=== PATIENT | female | born 1955 | race Caucasian/White ===

== ENCOUNTER 2016-12-21 16:28 | Emergency (ER) | payer BC, MEDICARE ==
[~2016-12-21] VITALS: Ht 177.8 cm; Wt 133.8 kg
[~2016-12-21 16:28] MED LIST: AZTH250C PO; FLT05NA16 NSEACH; MTH10T PO; PRD20T PO; SULF1TAB38 PO; THYR120T2 PO
[2016-12-21] MEDS ORDERED: THYR130T5 PO (16:41)
[2016-12-21 16:55] LABS: BASOPHILS % (AUTO) 0 % (0-10); EOSINOPHILS # (AUTO) 0.1 10^3/uL (0.0-0.3); EOSINOPHILS % (AUTO) 1 % (0-10); LYMPHOCYTES # (AUTO) 3.6 X 10^3 (1.0-4.0); LYMPHOCYTES % (AUTO) 47 % (12-44); MEAN CORPUSCULAR HEMOGLOBIN 28 PG (25-34); MEAN CORPUSCULAR HGB CONC 33 G/DL (32-36); MEAN CORPUSCULAR VOLUME 87 FL (80-99); MEAN PLATELET VOLUME 10.4 FL (7.4-10.4); MONOCYTES # (AUTO) 0.6 X 10^3 (0.0-1.0); MONOCYTES % (AUTO) 7 % (0-12); NEUTROPHILS # (AUTO) 3.5 X 10^3 (1.8-7.8); NEUTROPHILS % (AUTO) 45 % (42-75); PLATELET COUNT 204 10^3/uL (130-400); RED BLOOD COUNT 5.05 10^6/uL (4.35-5.85); RED CELL DISTRIBUTION WIDTH 14.5 % (10.0-14.5); WHITE BLOOD COUNT 7.7 10^3/uL (4.3-11.0)
--- NOTE | 2016-12-21 17:01 | ED Integumentary General ---
General Chief Complaint: Bite-Animal/Human/Insect Stated Complaint: SPIDER BITE Nursing Triage Note: PT HAS A SPIDER BITE ON THE POSTERIOR RT CALF. Source: patient Exam Limitations: no limitations History of Present Illness Time seen by provider: 16:59 Initial Comments To ER with reports of a 2 day history of a spider bite to the posterior right calf. She reports generally feeling unwell with malaise. She states that she feels febrile however her temperature is 96.7 but she states "that's actually 2 high for me" Timing/Duration: constant Severity: moderate Allergies and Home Medications Allergies Coded Allergies: Quinolones (Unverified Adverse Reaction, Intermediate, ligament et muscle problems, 01/01/13) Home Medications Methadone Hcl 10 Mg Tab, 10 MG PO DAILY PRN, (Reported) Thyroid,Pork 120 Mg Tablet, 120 MG PO DAILY, (Reported) Thyroid,Pork 130 Mg Tablet, 130 MG PO DAILY, (Reported) Constitutional: see HPI, chills, malaise EENTM: see HPI Respiratory: no symptoms reported Cardiovascular: no symptoms reported Genitourinary: no symptoms reported Musculoskeletal: see HPI Skin: see HPI Psychiatric/Neurological: No Symptoms Reported Past Ddqlfpg-Rtkrnz-Phpzms Hx Patient Social History Alcohol Use: Rarely Uses Recreational Drug Use: No Smoking Status: Former Smoker Type Used: Cigarettes Recent Foreign Travel: No Contact w/Someone Who Travel: No Recent Infectious Disease Expo: No Recent Hopitalizations: No Seasonal Allergies Seasonal Allergies: Yes Surgeries HX Surgeries: Yes (spinal surgery x 5, left meniscus, ) Surgeries: Adenoidectomy, Orthopedic, Tonsillectomy Respiratory Hx Respiratory Disorders: Yes Respiratory Disorders: Chronic Bronchitis, Sleep Apnea Cardiovascular Hx Cardiac Disorders: No Neurological Hx Neurological Disorders: No 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 Genitourinary Hx Genitourinary Disorders: No Gastrointestinal Hx Gastrointestinal Disorders: No Musculoskeletal Hx Musculoskeletal Disorders: Yes Musculoskeletal Disorders: Chronic Back Pain Endocrine Hx Endocrine Disorders: Yes Endocrine Disorders: Adrenal Disease, Hypothyroidsim Cancer Hx Cancer: No Family Medical History Significant Family History: No Pertinent Family Hx Physical Exam Vital Signs Vital Sign - Last 12Hours 12/21/16 16:32 Temp 96.7 Pulse 93 Resp 20 B/P (MAP) 140/84 Pulse Ox 97 O2 Delivery Room Air Capillary Refill : Less Than 3 Seconds General Appearance: WD/WN, no apparent distress HEENT: PERRL/EOMI, normal ENT inspection Neck: non-tender, full range of motion Respiratory: normal breath sounds, no respiratory distress, no accessory muscle use Gastrointestinal: non tender, soft Neurologic/Psychiatric: alert, normal mood/affect, oriented x 3 Skin: normal color, warm/dry, other (there is a small cluster of petechiae to the posterior right calf about the size of a quarter with no surrounding erythema to suggest cellulitis and no areas of necrosis.) Skin Problem Character: petechial Progress/Results/Core Measures Results/Orders Lab Results Laboratory Tests Test 12/21/16 16:45 Range/Units White Blood Count 7.7 4.3-11.0 10^3/uL Red Blood Count 5.05 4.35-5.85 10^6/uL Hemoglobin 14.3 11.5-16.0 G/DL Hematocrit 44 35-52 % Mean Corpuscular Volume 87 80-99 FL Mean Corpuscular Hemoglobin 28 25-34 PG Mean Corpuscular Hemoglobin Concent 33 32-36 G/DL Red Cell Distribution Width 14.5 10.0-14.5 % Platelet Count 204 130-400 10^3/uL Mean Platelet Volume 10.4 7.4-10.4 FL Neutrophils (%) (Auto) 45 42-75 % Lymphocytes (%) (Auto) 47 H 12-44 % Monocytes (%) (Auto) 7 0-12 % Eosinophils (%) (Auto) 1 0-10 % Basophils (%) (Auto) 0 0-10 % Neutrophils # (Auto) 3.5 1.8-7.8 X 10^3 Lymphocytes # (Auto) 3.6 1.0-4.0 X 10^3 Monocytes # (Auto) 0.6 0.0-1.0 X 10^3 Eosinophils # (Auto) 0.1 0.0-0.3 10^3/uL Basophils # (Auto) 0.0 0.0-0.1 10^3/uL My Orders Orders - LORENA ARTIS APRN Cbc With Automated Diff (12/21/16 16:37) Comprehensive Metabolic Panel (12/21/16 16:37) Vital Signs/I&O Vital Sign - Last 12Hours 12/21/16 16:32 Temp 96.7 Pulse 93 Resp 20 B/P (MAP) 140/84 Pulse Ox 97 O2 Delivery Room Air Blood Pressure Mean: 102 Departure Impression Impression: Primary Impression: Spider bite wound Disposition: 01 HOME, SELF-CARE Condition: Stable Departure-Patient Inst. Decision time for Depature: 17:00 Referrals: GABE BARAKAT MD (PCP/Family) Primary Care Physician Patient Instructions: Insect Bites and Stings (DC) Add. Discharge Instructions: 1. Cool compresses to this area for 30 minutes every 11-2 hours for the next few days 2. Return to ER for any concerns 3. Expect to feel better in 3-4 days 4. Follow-up with your doctor next week All discharge instructions reviewed with patient and/or family. Voiced understanding. LORENA ARTIS APRN Dec 21, 2016 17:01
[2016-12-21 17:11] LABS: ALBUMIN 4.1 GM/DL (3.2-4.5); BILIRUBIN,TOTAL 0.5 MG/DL (0.1-1.0); CALCIUM 9.5 MG/DL (8.5-10.1); CREATININE SERUM 1.01 MG/DL (0.60-1.30); POTASSIUM 4.3 MMOL/L (3.6-5.0); TOTAL PROTEIN 7.4 GM/DL (6.4-8.2)
[2016-12-21 17:21] VITALS: BP 140/84
== END 2016-12-21 17:21 | disposition home or self-care (01) ==
LOC: EDUNIT# 16:28 → ER 16:30
DX: S80.861A Insect bite (nonvenomous), right lower leg, initial encounter (principal); W57.XXXA Bitten or stung by nonvenomous insect and other nonvenomous arthropods, initial encounter; Y99.8 Other external cause status
CPT/HCPCS: 36415; 80053; 85025; 99283

== ENCOUNTER 2017-04-12 15:21 | Emergency (ER) | payer MEDICARE ==
[~2017-04-12] VITALS: Ht 177.8 cm; Wt 136.1 kg
[~2017-04-12 15:21] MED LIST changes: +THYR130T5 PO
--- NOTE | 2017-04-12 17:56 | Diagnostic Imaging Report ---
EXAM: HAND, RIGHT, 3 VIEWS INDICATION: Fall. COMPARISON: None. FINDINGS: No fracture or malalignment. Soft tissue shadows are unremarkable. IMPRESSION: No acute radiographic findings in the right hand. Dictated by: Dictated on workstation # [id number]
--- NOTE | 2017-04-12 17:58 | Diagnostic Imaging Report ---
EXAM: WRIST, RIGHT, 3 VIEWS OR MORE. INDICATION: Fall. Right wrist pain. COMPARISON: None. FINDINGS: No fracture or malalignment. Soft tissue shadows are unremarkable. IMPRESSION: No acute radiographic findings in the right wrist. Dictated by: Dictated on workstation # [id number]
--- NOTE | 2017-04-12 18:04 | Diagnostic Imaging Report ---
EXAM: KNEE, LEFT, 3 VIEWS. INDICATION: Fall. Left knee pain. COMPARISON: None. FINDINGS: There are wghjobvr-zl-vngcommg tricompartmental degenerative changes in the left knee, greatest in the medial compartment. Mild medial subluxation of the distal femur in relation to the tibia. No acute fractures. Soft tissue shadows are unremarkable. IMPRESSION: 1. No acute radiographic findings in the left knee. 2. Shoywejj-ef-rcozaphg tricompartmental degenerative changes in the left knee are greatest in the medial compartment. Dictated by: Dictated on workstation # [id number]
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
--- NOTE | 2017-04-12 18:14 | Diagnostic Imaging Report ---
PROCEDURE: CT cervical spine without contrast. TECHNIQUE: Multiple contiguous axial images were obtained through the cervical spine without the use of intravenous contrast. Sagittal and coronal reformations were then performed. INDICATION: Fall. History of cervical spine surgery. Neck pain. COMPARISON: None. FINDINGS: There is reversal of the normal cervical lordosis centered at C3-C4. There are postoperative findings of a mature anterior fusion at C5-C6. Hardware components are intact and without evidence of loosening. Vertebral body heights are preserved. There is a lucency through the anterior C2 vertebral body seen only on the sagittal images 29-32. No other findings suspicious for fracture. No high-grade spinal canal narrowing on this noncontrast exam. The visualized paravertebral soft tissues are unremarkable. IMPRESSION: 1. Lucency seen only on a few of the sagittal images along the anterior cortex of C2 is indeterminate and may represent a fracture. Recommend MRI for further evaluation. 2. Postoperative findings of a mature anterior fusion at C5-C6. No evidence of hardware failure. Report was called to SHAKIR Tirado in the [facility] ER at 6:11 p.m., by luan (for WAQAS). Dictated by: Dictated on workstation # [id number]
[2017-04-12 20:37] VITALS: BP 138/74
== END 2017-04-12 20:37 | disposition short-term general hospital (02) ==
LOC: EDUNIT# 15:21 → ER 15:23
DX: S12.100A Unspecified displaced fracture of second cervical vertebra, initial encounter for closed fracture (principal); S63.501A Unspecified sprain of right wrist, initial encounter; S93.412A Sprain of calcaneofibular ligament of left ankle, initial encounter; S80.02XA Contusion of left knee, initial encounter; G47.30 Sleep apnea, unspecified; E03.9 Hypothyroidism, unspecified; Z90.710 Acquired absence of both cervix and uterus; Z87.09 Personal history of other diseases of the respiratory system; Z87.891 Personal history of nicotine dependence; Z90.89 Acquired absence of other organs; W01.0XXA Fall on same level from slipping, tripping and stumbling without subsequent striking against object, initial encounter; Y93.01 Activity, walking, marching and hiking; Y92.85 Railroad track as the place of occurrence of the external cause
CPT/HCPCS: 72125; 73110; 73130; 73562; 99285

== ENCOUNTER → 2018-09-11 | Outpatient (CLI) | payer MEDICARE ==
--- NOTE | 2018-09-11 14:58 | Diagnostic Imaging Report ---
PROCEDURE: US Venous Lower Ext Anselmo. TECHNIQUE: Multiple real-time grayscale images were obtained over the lower extremities in various projections, bilaterally. Additional duplex Doppler and color Doppler images were also obtained. INDICATION: Bilateral lower extremity pain and swelling. COMPARISON: None available. FINDINGS: The visualized deep venous structures of the bilateral lower extremities demonstrate normal compression, flow, and augmentation. The left peroneal veins were not well seen. IMPRESSION: No evidence of DVT in either lower extremity. Dictated by: Dictated on workstation # [id number]
== END ==
LOC: RAD 10:34
PROVIDERS: ATTEND Podiatrist Foot & Ankle Surgery
DX: R60.0 Localized edema (principal)
CPT/HCPCS: 93970

== ENCOUNTER 2019-04-11 15:35 | Emergency (ER) | payer MEDICARE ==
[~2019-04-11] VITALS: Ht 177.8 cm; Wt 136.3 kg
--- NOTE | 2019-04-11 15:51 | ED Dyspnea ---
General Chief Complaint: Chest Pain Stated Complaint: CHEST TIGHTNESS Nursing Triage Note: PT AMB TO [facility] 6 WITH COMPLAINT OF CHEST TIGHTNESS, SOA, COUGH AND CONGESTION FOR ONE WEEK. Source of Information: Patient Exam Limitations: No Limitations History of Present Illness Date Seen by Provider: Apr 11, 2019 Time Seen by Provider: 15:49 Initial Comments To ER with reports of chest tightness shortness of air cough and chest congestion for one week. She reports a fever but hasn't measured it, this is subjective. History of bronchitis and this feels similar to her. Timing/Duration: 1 Week Severity: Moderate Associated Symptoms: Cough Allergies and Home Medications Allergies Coded Allergies: Quinolones (Unverified Adverse Reaction, Intermediate, ligament et muscle problems, 01/01/13) Home Medications Methadone Hcl 10 Mg Tab, 10 MG PO DAILY PRN, (Reported) Thyroid,Pork 120 Mg Tablet, 120 MG PO DAILY, (Reported) Thyroid,Pork 130 Mg Tablet, 130 MG PO DAILY, (Reported) Patient Home Medication List Home Medication List Reviewed: Yes Review of Systems Review of Systems Constitutional: see HPI EENTM: see HPI Respiratory: see HPI, cough, dyspnea on exertion Cardiovascular: see HPI Genitourinary: no symptoms reported Musculoskeletal: no symptoms reported Skin: no symptoms reported Psychiatric/Neurological: No Symptoms Reported Endocrine: No Symptoms Reported Hematologic/Lymphatic: No Symptoms Reported Past Ciorlfo-Qslsxc-Uididz Hx Patient Social History Alcohol Use: Denies Use Number of Drinks Today: FF Alcohol Beverage of Choice: Rum, Vodka Recreational Drug Use: No Smoking Status: Former Smoker Type Used: Cigarettes Former Smoker, Quit: Dec 12, 1996 2nd Hand Smoke Exposure: No Recent Foreign Travel: No Contact w/Someone Who Travel: No Recent Infectious Disease Expo: No Recent Hopitalizations: No Immunizations Up To Date Tetanus Booster (TDap): Unknown Seasonal Allergies Seasonal Allergies: Yes Past Medical History Surgeries: Yes (spinal surgery x 5, left meniscus, ) Adenoidectomy, Orthopedic, Tonsillectomy Respiratory: Yes Chronic Bronchitis, Sleep Apnea Cardiac: No 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 oz. 136.231351yv; 43.00 BMI Method:Stated General Appearance: No Apparent Distress, WD/WN HEENT: PERRL/EOMI, TMs Normal Neck: Full Range of Motion, Normal Inspection Respiratory: No Accessory Muscle Use, No Respiratory Distress; No Respiratory Distress, No Rhonci, No Stridor, No Wheezing Cardiovascular: Regular Rate, Rhythm, No Edema Gastrointestinal: Normal Bowel Sounds, Non Tender, Soft Neurologic/Psychiatric: Alert, Oriented x3 Skin: Normal Color, Warm/Dry Progress/Results/Core Measures Results/Orders Lab Results Laboratory Tests Test 04/11/19 16:21 Range/Units White Blood Count 7.0 4.3-11.0 10^3/uL Red Blood Count 4.88 4.35-5.85 10^6/uL Hemoglobin 13.6 11.5-16.0 G/DL Hematocrit 42 35-52 % Mean Corpuscular Volume 86 80-99 FL Mean Corpuscular Hemoglobin 28 25-34 PG Mean Corpuscular Hemoglobin Concent 33 32-36 G/DL Red Cell Distribution Width 14.4 10.0-14.5 % Platelet Count 196 130-400 10^3/uL Mean Platelet Volume 10.0 7.4-10.4 FL Neutrophils (%) (Auto) 49 42-75 % Lymphocytes (%) (Auto) 42 12-44 % Monocytes (%) (Auto) 8 0-12 % Eosinophils (%) (Auto) 1 0-10 % Basophils (%) (Auto) 0 0-10 % Neutrophils # (Auto) 3.4 1.8-7.8 X 10^3 Lymphocytes # (Auto) 2.9 1.0-4.0 X 10^3 Monocytes # (Auto) 0.5 0.0-1.0 X 10^3 Eosinophils # (Auto) 0.1 0.0-0.3 10^3/uL Basophils # (Auto) 0.0 0.0-0.1 10^3/uL Sodium Level 140 135-145 MMOL/L Potassium Level 4.0 3.6-5.0 MMOL/L Chloride Level 105 98-107 MMOL/L Carbon Dioxide Level 23 21-32 MMOL/L Anion Gap 12 5-14 MMOL/L Blood Urea Nitrogen 14 7-18 MG/DL Creatinine 0.82 0.60-1.30 MG/DL Estimat Glomerular Filtration Rate > 60 BUN/Creatinine Ratio 17 Glucose Level 111 H 70-105 MG/DL Calcium Level 9.3 8.5-10.1 MG/DL Troponin I < 0.028 <0.028 NG/ML B-Type Natriuretic Peptide 32.1 <100.0 PG/ML Thyroid Stimulating Hormone (TSH) 0.44 0.35-4.94 UIU/ML Free Thyroxine 0.79 0.70-1.48 NG/DL My Orders Orders - LORENA ARTIS APRN Chest Pa/Lat (2 View) (04/11/19 15:47) Fibrin Degradation Products (04/11/19 15:47) Cbc With Automated Diff (04/11/19 15:47) Troponin I (04/11/19 15:47) Basic Metabolic Panel (04/11/19 15:47) Ed Iv/Invasive Line Start (04/11/19 15:47) Albuterol/Ipra Inhalation Soln (Duoneb I (04/11/19 16:00) Svn Small Volume Nebulizer (04/11/19 15:51) BNP (04/11/19 15:51) Thyroid Stimulating Hormone (04/11/19 16:25) Free T4 (Free Thyroxine) (04/11/19 16:25) Vital Signs/I&O 04/11/19 15:38 Pulse 94 Resp 20 B/P (MAP) 131/86 (101) Pulse Ox 94 O2 Delivery Room Air Blood Pressure Mean: 101 POS Diagnostic Imaging Diagonstic Imaging: Xray Plain Films/CT/US/NM/MRI: chest Comments NAME: EMIL MAN [facility] REC#: [id number] PT STATUS: REG ER : 1955 PHYSICIAN: LORENA ARTIS APRN ADMIT DATE: 04/11/19/ER Draft POSDate of Exam:04/11/19 CHEST PA/LAT (2 VIEW) INDICATION: Chest tightness, dyspnea and cough. PA and lateral views of the chest obtained with comparison made to study of 12/28/2014. FINDINGS: Heart size and pulmonary vascularity are within normal limits, and the lungs are clear, bilaterally. IMPRESSION: Unremarkable chest. Dictated on workstation # [id number] Dict: 04/11/19 1623 Trans: 04/11/19 1625 [facility] [id number] Interpreted by: YUDY BRAVO MD Electronically signed by: Departure Impression Primary Impression: Bronchitis Disposition: 01 HOME, SELF-CARE Condition: Stable Departure-Patient Inst. Decision time for Depature: 17:12 Referrals: GABE BARAKAT MD (PCP/Family) Primary Care Physician Patient Instructions: Acute Bronchitis Add. Discharge Instructions: 1. Antibiotic as directed 2. Return to ER for any concerns 3. Follow-up with your doctor next week All discharge instructions reviewed with patient and/or family. Voiced understanding. Scripts Albuterol Sulfate (PROAIR HFA) 1 Puff Puff 2 PUFF IH Q4H PRN for WHEEZING, #1 PUFF 1 PUFF = 90 MCG Prov: LORENA ARTIS APRN 04/11/19 Doxycycline Hyclate (Doxycycline Hyclate) 100 Mg Tablet 100 MG PO BID, #14 TAB 0 Refills Prov: LORENA ARTIS APRN 04/11/19 LORENA ARTIS APRN Apr 11, 2019 15:51 POS
[2019-04-11] MEDS ORDERED: RT-ALBUTEROL/IPRATROPIUM 3 ML (DUONEB) VIAL INH ONE (16:00)
--- NOTE | 2019-04-11 16:26 | Diagnostic Imaging Report ---
INDICATION: Chest tightness, dyspnea and cough. PA and lateral views of the chest obtained with comparison made to study of 12/28/2014. FINDINGS: Heart size and pulmonary vascularity are within normal limits, and the lungs are clear, bilaterally. IMPRESSION: Unremarkable chest. Dictated by: Dictated on workstation # [id number]
[2019-04-11 16:31] LABS: BASOPHILS % (AUTO) 0 % (0-10); EOSINOPHILS # (AUTO) 0.1 10^3/uL (0.0-0.3); EOSINOPHILS % (AUTO) 1 % (0-10); HEMATOCRIT 42 % (35-52); HEMOGLOBIN 13.6 G/DL (11.5-16.0); LYMPHOCYTES # (AUTO) 2.9 X 10^3 (1.0-4.0); LYMPHOCYTES % (AUTO) 42 % (12-44); MEAN CORPUSCULAR HEMOGLOBIN 28 PG (25-34); MEAN CORPUSCULAR HGB CONC 33 G/DL (32-36); MEAN CORPUSCULAR VOLUME 86 FL (80-99); MONOCYTES # (AUTO) 0.5 X 10^3 (0.0-1.0); MONOCYTES % (AUTO) 8 % (0-12); NEUTROPHILS # (AUTO) 3.4 X 10^3 (1.8-7.8); NEUTROPHILS % (AUTO) 49 % (42-75); PLATELET COUNT 196 10^3/uL (130-400); RED CELL DISTRIBUTION WIDTH 14.4 % (10.0-14.5)
[2019-04-11 16:48] LABS: BUN/CREATININE RATIO 17; CALCIUM 9.3 MG/DL (8.5-10.1); CARBON DIOXIDE 23 MMOL/L (21-32); CHLORIDE 105 MMOL/L (98-107); CREATININE SERUM 0.82 MG/DL (0.60-1.30); GFR ESTIMATED > 60; GLUCOSE 111 MG/DL (70-105); SODIUM 140 MMOL/L (135-145)
[2019-04-11 17:11] LABS: FREE T4 (FREE THYROXINE) 0.79 NG/DL (0.70-1.48)
[2019-04-11] MEDS ORDERED: RT-ALBUINH IH (17:13)
[2019-04-11] MEDS ORDERED: DOXY100T2 PO (17:13)
[2019-04-11 17:36] VITALS: BP 125/85
== END 2019-04-11 17:36 | disposition home or self-care (01) ==
LOC: EDUNIT# 15:35 → ER 15:36
DX: J40 Bronchitis, not specified as acute or chronic (principal); G47.30 Sleep apnea, unspecified; E03.9 Hypothyroidism, unspecified; E27.9 Disorder of adrenal gland, unspecified; Z90.710 Acquired absence of both cervix and uterus; Z88.8 Allergy status to other drugs, medicaments and biological substances; Z87.891 Personal history of nicotine dependence; Z90.89 Acquired absence of other organs
CPT/HCPCS: 36415; 71046; 80048; 83880; 84439; 84443; 84484; 85025; 85379; 93005

== ENCOUNTER 2019-07-30 13:50 | Emergency (ER) | payer MEDICARE ==
[~2019-07-30] VITALS: Ht 177.8 cm; Wt 136.3 kg
[~2019-07-30 13:50] MED LIST changes: +DOXY100T2 PO; +RT-ALBUINH IH
[2019-07-30] MEDS ORDERED: RT-ALBUTEROL/IPRATROPIUM 3 ML (DUONEB) VIAL INH ONE (14:15)
[2019-07-30 14:20] LABS: BASOPHILS % (AUTO) 0 % (0-10); EOSINOPHILS # (AUTO) 0.1 10^3/uL (0.0-0.3); EOSINOPHILS % (AUTO) 1 % (0-10); HEMATOCRIT 42 % (35-52); HEMOGLOBIN 13.6 G/DL (11.5-16.0); LYMPHOCYTES # (AUTO) 3.8 X 10^3 (1.0-4.0); LYMPHOCYTES % (AUTO) 46 % (12-44); MEAN CORPUSCULAR HEMOGLOBIN 28 PG (25-34); MEAN CORPUSCULAR HGB CONC 33 G/DL (32-36); MEAN CORPUSCULAR VOLUME 86 FL (80-99); MEAN PLATELET VOLUME 11.2 FL (7.4-10.4); MONOCYTES # (AUTO) 0.7 X 10^3 (0.0-1.0); MONOCYTES % (AUTO) 9 % (0-12); NEUTROPHILS # (AUTO) 3.6 X 10^3 (1.8-7.8); NEUTROPHILS % (AUTO) 44 % (42-75); PLATELET COUNT 284 10^3/uL (130-400); RED CELL DISTRIBUTION WIDTH 15.1 % (10.0-14.5); WHITE BLOOD COUNT 8.2 10^3/uL (4.3-11.0)
[2019-07-30 14:31] LABS: INR 0.9 (0.8-1.4); PROTHROMBIN TIME PATIENT 12.9 SEC (12.2-14.7)
--- NOTE | 2019-07-30 14:33 | ED Chest Pain ---
General Chief Complaint: Chest Pain Stated Complaint: L LEG PAIN;CHEST TIGHTNESS;FEVER;SOA Source: patient History of Present Illness Date Seen by Provider: Jul 30, 2019 Time Seen by Provider: 14:04 Initial Comments Here with report of palpitations and chest discomfort including tightness that occurred at about 12:30 and is better now. Does have history of onset like this when she gets cases of bronchitis and usually has to get that evaluated early to prevent more significant infection or problems per the patient. Denies nausea, vomiting or diarrhea. Does feel short of air. Does have thyroid issues and stat es that she has adjusted her thyroid medicine down recently because her TSH was suppressed. Timing/Duration: 1-3 hours, changing over time Severity/Quality: mild, tightness, other (palpitations) Location: central Radiation: no radiation Activities at Onset: rest Prior CP/Workup: no prior cardiac workup Modifying Factors: improves with rest ASA po FINISH PRODUCTION MANAGER: No NTG SL FINISH PRODUCTION MANAGER: No Associated Symptoms: No abdominal pain, No back pain; fatigue; No fever/chills, No nausea/vomiting; shortness of breath; No weakness Allergies and Home Medications Allergies Coded Allergies: Quinolones (Unverified Adverse Reaction, Intermediate, ligament et muscle problems, 01/01/13) Home Medications Albuterol Sulfate 1 Puff Puff, 2 PUFF IH Q4H PRN for WHEEZING 1 PUFF = 90 MCG Prescribed by: LORENA ARTIS on 04/11/191712 Doxycycline Hyclate 100 Mg Tablet, 100 MG PO BID Prescribed by: LORENA ARTIS on 04/11/191712 Methadone Hcl 10 Mg Tab, 10 MG PO DAILY PRN, (Reported) Thyroid,Pork 120 Mg Tablet, 120 MG PO DAILY, (Reported) Thyroid,Pork 130 Mg Tablet, 130 MG PO DAILY, (Reported) Patient Home Medication List Home Medication List Reviewed: Yes Review of Systems Review of Systems Constitutional: see HPI; No chills, No fever EENTM: No Symptoms Reported Respiratory: See HPI, Shortness of Air, Wheezing Cardiovascular: Chest Pain, Palpitations Gastrointestinal: No Symptoms Reported Genitourinary: No Symptoms Reported Musculoskeletal: muscle pain, muscle cramps Skin: no symptoms reported Psychiatric/Neurological: No Symptoms Reported All Other Systems Reviewed Negative Unless Noted: Yes Past Ssczzec-Mqhldk-Ebogih Hx Past Med/Social Hx: Reviewed Nursing Past Med/Soc Hx Patient Social History Alcohol Use: Denies Use Alcohol Beverage of Choice: Rum, Vodka Recreational Drug Use: No Smoking Status: Former Smoker Type Used: Cigarettes Former Smoker, Quit: Dec 12, 1996 2nd Hand Smoke Exposure: No Recent Foreign Travel: No Contact w/Someone Who Travel: No Recent Hopitalizations: No Immunizations Up To Date Tetanus Booster (TDap): Unknown Seasonal Allergies Seasonal Allergies: Yes Past Medical History Surgeries: Yes (spinal surgery x 5, left meniscus, ) Adenoidectomy, Orthopedic, Tonsillectomy Respiratory: Yes Chronic Bronchitis, Sleep Apnea Cardiac: No 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 oz. 136.733986jh; 43.00 BMI Method:Stated General Appearance: No Apparent Distress, WD/WN HEENT: PERRL/EOMI, Pharynx Normal Neck: Non Tender, Supple Respiratory: No Accessory Muscle Use, No Respiratory Distress, Expiration, Wheezing (few trace expiratory wheezes) Cardiovascular: Regular Rate, Rhythm, No Murmur Gastrointestinal: Non Tender, Soft Extremity: Normal Range of Motion, Non Tender Neurologic/Psychiatric: Alert, Oriented x3 Skin: Normal Color, Warm/Dry Progress/Results/Core Measures Results/Orders Lab Results Laboratory Tests Test 07/30/19 14:07 Range/Units White Blood Count 8.2 4.3-11.0 10^3/uL Red Blood Count 4.89 4.35-5.85 10^6/uL Hemoglobin 13.6 11.5-16.0 G/DL Hematocrit 42 35-52 % Mean Corpuscular Volume 86 80-99 FL Mean Corpuscular Hemoglobin 28 25-34 PG Mean Corpuscular Hemoglobin Concent 33 32-36 G/DL Red Cell Distribution Width 15.1 H 10.0-14.5 % Platelet Count 284 130-400 10^3/uL Mean Platelet Volume 11.2 H 7.4-10.4 FL Neutrophils (%) (Auto) 44 42-75 % Lymphocytes (%) (Auto) 46 H 12-44 % Monocytes (%) (Auto) 9 0-12 % Eosinophils (%) (Auto) 1 0-10 % Basophils (%) (Auto) 0 0-10 % Neutrophils # (Auto) 3.6 1.8-7.8 X 10^3 Lymphocytes # (Auto) 3.8 1.0-4.0 X 10^3 Monocytes # (Auto) 0.7 0.0-1.0 X 10^3 Eosinophils # (Auto) 0.1 0.0-0.3 10^3/uL Basophils # (Auto) 0.0 0.0-0.1 10^3/uL Prothrombin Time 12.9 12.2-14.7 SEC INR Comment 0.9 0.8-1.4 Activated Partial Thromboplast Time 27 24-35 SEC Sodium Level 143 135-145 MMOL/L Potassium Level 4.7 3.6-5.0 MMOL/L Chloride Level 108 H 98-107 MMOL/L Carbon Dioxide Level 26 21-32 MMOL/L Anion Gap 9 5-14 MMOL/L Blood Urea Nitrogen 16 7-18 MG/DL Creatinine 0.95 0.60-1.30 MG/DL Estimat Glomerular Filtration Rate 59 BUN/Creatinine Ratio 17 Glucose Level 95 70-105 MG/DL Calcium Level 9.0 8.5-10.1 MG/DL Corrected Calcium 9.1 8.5-10.1 MG/DL Magnesium Level 1.8 1.6-2.4 MG/DL Total Bilirubin 0.3 0.1-1.0 MG/DL Aspartate Amino Transf (AST/SGOT) 27 5-34 U/L Alanine Aminotransferase (ALT/SGPT) 24 0-55 U/L Alkaline Phosphatase 65 40-136 U/L Myoglobin 34.5 10.0-92.0 NG/ML Troponin I < 0.028 <0.028 NG/ML C-Reactive Protein High Sensitivity 0.69 H 0.00-0.50 MG/DL Total Protein 7.3 6.4-8.2 GM/DL Albumin 3.9 3.2-4.5 GM/DL TSH [place] Testing 0.61 0.35-4.94 UIU/ML Micro Results Microbiology 07/30/19 Influenza Types A,B Antigen (JAMES) - Final, Complete My Orders Orders - RENNY MCGEE MD Hs C Reactive Protein (07/30/19 14:11) Thyroid Analyzer (07/30/19 14:11) Influenza A And B Antigens (07/30/19 14:11) Cbc With Automated Diff (07/30/19 14:11) Magnesium (07/30/19 14:11) Chest 1 View, Ap/Pa Only (07/30/19 14:11) Ekg Tracing (07/30/19 14:11) Comprehensive Metabolic Panel (07/30/19 14:11) Myoglobin Serum (07/30/19 14:11) Protime With Inr (07/30/19 14:11) Partial Thromboplastin Time (07/30/19 14:11) O2 (07/30/19 14:11) Monitor-Rhythm Ecg Trace Only (07/30/19 14:11) Lipid Panel (07/31/19 06:00) Ed Iv/Invasive Line Start (07/30/19 14:11) Troponin I (07/30/19 14:11) Albuterol/Ipra Inhalation Soln (Duoneb I (07/30/19 14:15) Svn Small Volume Nebulizer (07/30/19 14:11) Aspirin Chewable Tablet (Baby Aspirin Ch (07/30/19 14:45) Medications Given in ED Current Medications Medications Dose Ordered Sig/Willie Route Start Time Stop Time Status Last Admin Dose Admin Albuterol/ Ipratropium 3 ml ONCE ONCE INH 07/30/19 14:15 07/30/19 14:16 DC 07/30/19 14:46 3 ML Aspirin 324 mg ONCE ONCE PO 07/30/19 14:45 07/30/19 14:46 DC 07/30/19 15:02 324 MG Vital Signs/I&O 07/30/19 07/30/19 14:00 14:05 Temp 37.1 Pulse 85 Resp 18 B/P (MAP) 138/88 (105) Pulse Ox 94 O2 Delivery Room Air Room Air Progress Progress Note : Progress Note Seen and evaluated. IV, labs, EKG and chest x-ray ordered. Duo neb ordered. Influenza screen ordered. Monitor patient. 1540: Patient is doing much better. Still has a little bit of a coarse cough and upper respiratory symptoms. This seems to be more viral bronchitis related and she agrees. She restates that all of her chest off was tightness and not pain and this feels like her bronchitis. I would agree given her evaluation. Decadron 10 mg IV given. Patient has albuterol inhaler with 188 doses available. Discharged home with return precautions. Patient verbalize understanding instructions and agreement with plan. Initial ECG Impression Date: Jul 30, 2019 Initial ECG Impression Time: 13:57 Initial ECG Rate: 85 Initial ECG Rhythm: Normal Sinus Initial ECG Impression: Normal Initial ECG Comparisson: Unchanged Comment Sinus rhythm with normal axis. No evidence of ST elevation NE. Similar to previous of 04/11/19. Interpreted by me. Diagnostic Imaging Diagonstic Imaging: Xray Plain Films/CT/US/NM/MRI: chest Comments NAME: EMIL [facility] REC#: [id number] PT STATUS: REG ER : 1955 PHYSICIAN: RENNY MCGEE MD ADMIT DATE: 07/30/19/ER Draft Date of Exam:07/30/19 CHEST 1 VIEW, AP/PA ONLY INDICATION: Tachycardia. TECHNIQUE/COMPARISON: A single AP view of the chest was obtained. Comparison is made to an examination of 04/11/2019. FINDINGS: The heart size and pulmonary vascularity are within normal limits. The lungs are clear and well expanded. There is no pneumothorax or consolidation. Surgical changes are seen in the cervical spine with foreshortening of the right clavicle. IMPRESSION: No acute abnormality. Dictated on workstation # [id number] Dict: 07/30/19 1528 Trans: 07/30/19 1535 [id number] Interpreted by: YUDY BRAVO MD Electronically signed by: Departure Impression Primary Impression: Viral upper respiratory tract infection with cough Disposition: HOME, SELF-CARE Condition: Improved Departure-Patient Inst. Referrals: GABE BARAKAT MD (PCP/Family) Primary Care Physician Patient Instructions: Viral Upper Respiratory Infection, Adult (DC) Add. Discharge Instructions: All discharge instructions reviewed with patient and/or family. Voiced under standing. Use your inhaler 2 puffs every 4-6 hours as needed for wheezing or cough. Drink plenty of fluids and get some rest. Take other medications as previously prescribed. You may use [id number] cough medicine as needed. RENNY MCGEE MD Jul 30, 2019 14:33
[2019-07-30] MEDS ORDERED: ASPIRIN 81 MG CHEW (CHILDREN'S ASA) PO ONE (14:45)
[2019-07-30 14:50] LABS: ALBUMIN 3.9 GM/DL (3.2-4.5); BILIRUBIN,TOTAL 0.3 MG/DL (0.1-1.0); CREATININE SERUM 0.95 MG/DL (0.60-1.30); MAGNESIUM 1.8 MG/DL (1.6-2.4); POTASSIUM 4.7 MMOL/L (3.6-5.0); TOTAL PROTEIN 7.3 GM/DL (6.4-8.2)
[2019-07-30 15:13] LABS: TSH (THYROID ANALYZER) 0.61 UIU/ML (0.35-4.94)
--- NOTE | 2019-07-30 15:35 | Diagnostic Imaging Report ---
INDICATION: Tachycardia. TECHNIQUE/COMPARISON: A single AP view of the chest was obtained. Comparison is made to an examination of 04/11/2019. FINDINGS: The heart size and pulmonary vascularity are within normal limits. The lungs are clear and well expanded. There is no pneumothorax or consolidation. Surgical changes are seen in the cervical spine with foreshortening of the right clavicle. IMPRESSION: No acute abnormality. Dictated by: Dictated on workstation # [id number]
[2019-07-30] MEDS ORDERED: DEXAMETHASONE 10 MG/ML (DECADRON) 1 ML VIAL IV ONE (15:45)
[2019-07-30 16:09] VITALS: BP 118/63
--- OUTSIDE RECORDS SUMMARY | 2019-07-30 18:24 | XMS REPORT ---
Author Author [email or web address] Organization [email or web address] Address [address] [place] [id number] Care Team Providers Care Canine Enforcement Officer Name Role Phone NO, LOCAL PHYSICIAN Unavailable Unavailable NO, LOCAL PHYSICIAN Unavailable Unavailable Allergies No Information Medications No Information Problems The data below is from unstructured sourcesNo Known Problems or Medical conditions. Procedures No Information Immunizations The data below is from unstructured sourcesNo immunization records. Results The data below is from unstructured sourcesNo Known Relevant Diagnostic Tests, Laboratory Data and/or Discharge Summary. Vital Signs The data below is from unstructured sources Vital Response Date/Time Temperature (Fahrenheit) 97.0 degree s F (97.6 - 99.5) 12/28/2014 8:25pm Temperature (Calculated Celsius) 36. 51678 degrees C (36.4 - 37.5) 12/28/2014 8:25pm Temperature Source Temporal 12/28/2014 8:25pm Pulse Rate (adult) 99 bpm (60 - 90) 12/28/2014 8:25pm Respiratory Rate 20 bpm (12 - 24) 12/28/2014 8:25pm O2 Sat by Pulse Oximetry 97 % (88 - 100) 12/28/2014 8:25pm Blood Pressure 140/74 mm Hg 12/28/2014 8:25pm Blood Pressure Mean 108 mm Hg 12/28/2014 6:03pm Pain Pain Intensity 0 2014 8:25pm Height (Feet) 5 feet 6:03pm Height (Inches) 10 inches 12/28/2014 6:03pm Height (Calculated Centimeters) 177. 279647 cm 12/28/2014 6:03pm Weight (Pounds) 265 pounds 12/28/2014 6:03pm Weight (Calculated Grams) 766112.017 gm 12/28/2014 6:03pm Weight (Calculated Kilograms) 120.20 1979 kilograms 12/28/2014 6:03pm Calculated BMI 38.02 6:03pm Interventions No Information Plan of Treatment The data below is from unstructured sources Discharge Date 12/28/14 8:25pm Disposition 01 HOME, SELF-CARE Condition at Discharge Improved Instructions/Education Provided Reac tive Airways Disease (ED) Prescriptions See Medication Section Referrals NO,LOCAL PHYSICIAN - [facility] Physician Additional Instructions/Education Al l discharge instructions reviewed with patient and/or family. Voiced understanding. Follow-up with your doctor tomorrow for recheck. Use albuterol inhaler, 2 puffs every 4 hours as needed for wheezing. Return for worse pain, weakness, breathing problems or other concerns as needed. Take medications as directed. You should ventilate your house and try to avoid exposure to chemical fumes. Goals No Information Social History The data below is from unstructured sources History Response Recorde d Date/Time Alcohol Use Rarely Uses 01/01/13 3:56pm Recreational Drug Use N 01/01/13 3:56pm Functional Status The data below is from unstructured sourcesNo functional status results. Mental Status No Information Encounters No Information Medical Equipment No Information Payers The data below is from unstructured sources Payer Name Policy Number Subscriber Name Relationship Unknown Asha [employer] Advance Directives Directive Response Recor ded Date/Time Advance Directives No 6:10pm Resuscitation Status Full Code 12/28/14 6:10pm Directive Response Recor ded Date Advance Directives N 3:56pm Discharge Instructions No hospital discharge instructions. Additional Source Comments This clinical document has been generated using [employer] software that has been certified by the Office of the National Coordinator for Health Information Technology (ONC 15.99.04.3023.Diam.31.00.0.893283) and the National Committee for Wireless Cellular Technician (NCQA, as an eMeasure certified technology). FOR RECORDS PERTAINING TO PATIENTS WHO ARE OR HAVE BEEN ENROLLED IN A CHEMICAL D EPENDENCY/SUBSTANCE ABUSE PROGRAM, SOME INFORMATION MAY BE OMITTED. This clinica l summary was aggregated from multiple sources. Caution should be exercised in using it in the provision of clinical care. This summary normalizes information from multiple sources, and as a consequence, information in this document may ma terially change the coding, format and clinical context of patient data. In arabella tion, data may be omitted in some cases. CLINICAL DECISIONS SHOULD BE BASED ON T HE PRIMARY CLINICAL RECORDS. [facility] [employer], [facility]. provides no warranty or guara ntee of the accuracy or completeness of information in this document.The followi ng information is based on time limited clinical information
== END 2019-07-30 16:11 | disposition home or self-care (01) ==
LOC: EDUNIT# 13:50 → ER 13:52
DX: J06.9 Acute upper respiratory infection, unspecified (principal); E03.9 Hypothyroidism, unspecified; Z88.8 Allergy status to other drugs, medicaments and biological substances; Z87.891 Personal history of nicotine dependence
CPT/HCPCS: 36415; 71045; 80053; 83735; 83874; 84443; 84484; 85025; 85610; 85730; 86141; 87804; 93041